=== PATIENT | male | born 1950 | race Caucasian/White ===

== ENCOUNTER 2023-10-03 14:42 | Emergency (ER) | payer OTHER, SELFPAY ==
[2023-10-03 14:48] VITALS: BP 149/92
--- NOTE | 2023-10-03 15:01 | ED.PDOC.TR ---
ED Provider Triage
-
Patient seen by provider in Triage?: Seen in Triage
Pt was assessed in triage as a rapid assessment to expedite ongoing care with expectation of further assessment.
72-year-old male presenting to the emergency department concerns of discoloration to his left distal foot without any specific trauma that he noticed this morning. Denies any pain known injuries. Denies additional concerns. Here this does appear
consistent with ecchymosis. No tenderness to the area able to move the toes freely. Normal cap refill and dorsalis pedis pulse. Does not appear to be consistent with an ischemic foot x-ray was ordered pending further assessment.
--- NOTE | 2023-10-03 16:55 | ED.GENMED ---
History of Present Illness
General
Chief Complaint: Circulation Problem
Time Seen by Provider: 10/03/23 16:34
Travel History
Have you had any contact with someone who has COVID-19?: No
Do you have any symptoms of coronavirus? Fever > 100 degrees, chills, cough, shortness of breath, sore throat, loss of taste or smell, muscle aches, or headache?: No
History of Present Illness
History of Present Illness:
72-year-old male presents to the emergency department for evaluation of nontraumatic bruising to the left foot that developed overnight. He denies any injuries or pain to the foot. He is able to ambulate without discomfort. Denies any distal
paresthesias. No leg swelling.
Review of Systems
Review of Systems
Allergies reviewed?: Yes
All Other Systems: ROS reviewed and negative except as documented in HPI and ROS
Phy Exam
Physical Exam
Physical Exam:
GEN: Well appearing, NAD, WDWN
HEENT: Oral mucosa moist, no scleral icterus
Cardiac: Regular rate
Lung: No respiratory distress, no tachypnea
MSK: No gross deformity or injuries
Skin: Good color, no pallor or jaundice, no rashes. Ecchymosis at the base of the left second third and fourth toes. No pallor or decreased capillary refill to the distal digits. Left dorsalis pedis pulse is strong. No lower extremity edema
Neuro: AO x3, moves all extremities freely
Psych: Calm, cooperative
Course
Orders/Labs/Results
Orders:
Orders
10/03/23 15:00
CR Foot - Left Min 3 Views Urgent
Comment:
Reason For Exam: left foot bruisiing
Vital Signs
Initial and Last Documented VS:
Initial Vital Signs
Temp Pulse Resp BP Pulse Ox
98.3 F 103 18 149/92 96
10/03/23 14:48 10/03/23 14:48 10/03/23 14:48 10/03/23 14:48 10/03/23 14:48
Last Documented Vital Signs
Temp Pulse Resp BP Pulse Ox
98.3 F 103 18 149/92 96
10/03/23 14:48 10/03/23 14:48 10/03/23 14:48 10/03/23 14:48 10/03/23 14:48
MDM/Problems Addressed
MDM/Problems Addressed:
No clinical concerns for vascular pathology given that the distal digits have intact capillary refill and dorsalis pedis pulses strong. Likely ecchymosis on the basis of his antiplatelet use
*Critical Care Note
Total Time (30-74mins, 75-104mins- exclusive of procedures): Not Applicable
ED Attending Note
-
Portions of this chart may have been created with voice recognition software.� Occasional wrong word or��sound alike� substitutions may have occurred due to the inherent limitations of voice recognition software.
Discharge Plan
Departure
Patient Disposition: Home (Routine Discharge)
Date of Disposition: 10/03/23
Time of Disposition: 16:56
Patient with high blood pressure during this ER visit?: No
Discharge Problem:
Bruising
Activity Restrictions/Additional Instructions:
There is no sign of a blood flow problem at this time. If you develop left foot numbness, severe pain, or severe swelling of the leg please return to the emergency department
Interventions
Interventions:
*Nursing Disposition Last Done: 10/03/23 17:09
Discharge Date and Time
Discharge Date/Time: 10/03/23 17:10
Print Language: [id number]
== END 2023-10-03 17:10 | disposition home or self-care (01) ==
LOC: EMR 14:42
PROVIDERS: EMERGENCY PHYSICIAN Emergency Medicine; FAMILY PHYSICIAN Physician Assistant Medical
DX: S90.32XA Contusion of left foot, initial encounter (principal); X58.XXXA Exposure to other specified factors, initial encounter
CPT/HCPCS: 99283; 73630